=== PATIENT | male | born 2000 | race Hispanic/Latino ===

== ENCOUNTER 2018-04-26 20:51 | Emergency (ER) | payer MEDICAID, OTHER | END 2018-04-26 21:45 | disposition home or self-care (01) | LOC: EDH 20:51 | DX: L03.116 Cellulitis of left lower limb (principal) ==

== ENCOUNTER 2021-06-29 09:23 | Emergency (ER) | payer SELFPAY ==
[~2021-06-29] VITALS: Ht 182.9 cm; Wt 122.9 kg
[2021-06-29] MEDS ORDERED: TETANUS/DIPHTHERIA TOXOID [ADULT] 0.5 ML VIAL IM ONE (10:12)
[2021-06-29 10:29] VITALS: BP 132/86
== END 2021-06-29 10:33 | disposition home or self-care (01) ==
LOC: EDH 09:23
DX: S61.012A Laceration without foreign body of left thumb without damage to nail, initial encounter (principal); X58.XXXA Exposure to other specified factors, initial encounter; Y93.89 Activity, other specified; Y92.89 Other specified places as the place of occurrence of the external cause; Y99.8 Other external cause status
CPT/HCPCS: 90471; 90714

== ENCOUNTER 2021-10-31 15:33 | Emergency (ER) | payer SELFPAY ==
[~2021-10-31] VITALS: Ht 182.9 cm; Wt 122.5 kg
[2021-10-31 15:34] VITALS: BP 129/77
[2021-10-31] MEDS ORDERED: IBUPROFEN 600 MG TABLET ONE (15:42)
[2021-10-31] MEDS ORDERED: DEXAMETHASONE 4 MG TAB PO SCH (18:00)
[2021-10-31] MEDS ORDERED: ACETAMINOPHEN WITH CODEINE 1 TAB TAB PO ONE (18:00)
[2021-10-31] MEDS ORDERED: IBUPROFEN 800 MG TAB PO ONE (18:00)
[2021-10-31] MEDS ORDERED: 0.9%NACL 1000ML 1,000 ML IV ONE (18:00)
[2021-10-31] MEDS ORDERED: D-ME1POW16 PO (18:43)
[2021-10-31] MEDS ORDERED: IVER3TAB PO (18:44)
[2021-10-31] MEDS ORDERED: DEXA6TAB7 PO (18:44)
== END 2021-10-31 19:11 | disposition home or self-care (01) ==
LOC: EDH 15:33
DX: U07.1 COVID-19 (principal); E86.0 Dehydration; Z79.1 Long term (current) use of non-steroidal anti-inflammatories (NSAID); Z79.52 Long term (current) use of systemic steroids
CPT/HCPCS: 87635; 87804 ×2; 87880; 96360; 99284; C9803; J7030; J8540

== ENCOUNTER 2022-08-07 08:33 | Emergency (ER) | payer OTHER ==
[~2022-08-07] VITALS: Ht 180.3 cm; Wt 127.0 kg
[~2022-08-07 08:33] MED LIST: D-ME1POW16 PO; DEXA6TAB7 PO; IVER3TAB PO
[2022-08-07] MEDS ORDERED: SULFAMETHOX-TMP DS 800/160 TAB PO SCH (09:00)
[2022-08-07] MEDS ORDERED: LIDOCAINE HCL 1% 20 ML VIAL INJ SCH (09:00)
[2022-08-07 09:02] LABS: BASOPHILS % (AUTO) 0.4 % (0.0-5.0); EOSINOPHILS % (AUTO) 1.7 % (0.0-8.0); HEMATOCRIT 41.2 % (42-54); LYMPHOCYTES % (AUTO) 28.2 % (21.0-51.0); MEAN CORPUSCULAR HEMOGLOBIN 28.9 pg (27.0-33.0); MEAN CORPUSCULAR VOLUME 87.7 fL (79-99); MONOCYTES % (AUTO) 7.4 % (3.0-13.0); NEUTROPHILS % (AUTO) 62.2 % (40.0-77.0); PLATELET COUNT (AUTO) 246 K/uL (130-400); RED CELL DISTRIBUTION WIDTH 13.7 % (11.0-15.5); WHITE BLOOD COUNT (AUTO) 7.3 K/uL (4.8-10.8)
[2022-08-07 09:11] LABS: CREATININE 0.9 mg/dL (0.5-1.5); POTASSIUM 3.9 mmol/L (3.5-5.1)
[2022-08-07 09:16] LABS: ALBUMIN 3.9 g/dL (3.5-5.0); TOTAL PROTEIN, SERUM 7.8 g/dL (6.0-8.3)
[2022-08-07] MEDS ORDERED: SULF1TAB42 PO (09:24)
[2022-08-07 09:38] VITALS: BP 129/102
== END 2022-08-07 09:38 | disposition home or self-care (01) ==
LOC: EDH 08:33
DX: L02.31 Cutaneous abscess of buttock (principal); Z79.52 Long term (current) use of systemic steroids
CPT/HCPCS: 10060; 36415; 80053; 85025